=== PATIENT | male | born 2000 | race Caucasian/White ===

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

== ENCOUNTER 2023-12-30 16:26 | Emergency (ER) | payer BC ==
[~2023-12-30] VITALS: Ht 167.6 cm; Wt 65.8 kg
[~2023-12-30 16:26] MED LIST: ACET-8001 PO
[2023-12-30 16:34] VITALS: BP 126/74; PULSE 85; RESP 18; TEMP 98.3; O2SAT 99
[2023-12-30] MEDS ORDERED: IBUP-2213 PO (18:20)
[2023-12-30] MEDS ORDERED: BACI-418 TP (18:20)
[2023-12-30] MEDS ORDERED: CEPH-588 PO (18:20)
[2023-12-30] MEDS: BACITRACIN OINT 500 UNITS/GM PKT TP ONE (19:35)
== END 2023-12-30 19:40 | disposition home or self-care (01) ==
LOC: MED 16:26
DX: S80.11XA Contusion of right lower leg, initial encounter (principal); Z79.899 Other long term (current) drug therapy; W03.XXXA Other fall on same level due to collision with another person, initial encounter; Y93.89 Activity, other specified; Y92.89 Other specified places as the place of occurrence of the external cause; Y99.8 Other external cause status
CPT/HCPCS: 73590; 99283